=== PATIENT | male | born 1960 | race Caucasian/White ===

== ENCOUNTER 2016-06-12 14:37 | Emergency (ER) | payer SELFPAY ==
[2016-06-12 14:50] VITALS: TEMP 96.8
--- NOTE | 2016-06-12 15:16 | CT ---
Clinical History : Thrown out of backhoe and hit head on barrel. , MAIN Exam : CT Head without contrast 06/12/2016 2:40 PM NEGATIVE ASSEMBLER Comparisons : none. Technique : Volumetric CT acquisition was performed through the brain. Images in the axial, coronal, and sagittal planes were presented for interpretation. Radiation dose : [id number]-870.72 Findings: There is a right frontal scalp soft tissue laceration. The rest of the soft tissue structures of the face and scalp are normal. The globes remain intact. The visualized portions of the paranasal sinuses and mastoid air-cells are clear. The calvarium remains intact . There is no acute intracranial hemorrhage, midline shift, or mass effect. The ventricles are normal in size and the posterior fossa structures are normal in appearance. Limited evaluation of the vasculature demonstrates no gross abnormalities. There is no CT evidence of acute infarction. Impression: 1. No acute intracranial traumatic injury. 2. Right frontal scalp laceration. Electronically signed by: Dimas Beltran MD 06/12/2016 3:15 PM NEGATIVE ASSEMBLER
[2016-06-12] MEDS ORDERED: LIDOCAINE 1% W/ EPINEPHRINE 20 ML VIAL INJ ONE (15:21)
[2016-06-12] MEDS ORDERED: CHLORHEXIDINE GLUCONATE 4 % 15 ML UD TOP ONE (15:32)
[2016-06-12] MEDS ORDERED: NEOMYCIN-BACITRACIN-POLYMYXIN 0.9 GM UD TOP ONE (16:38)
--- NOTE | 2016-06-12 16:54 | ED.PDOC ---
History of Present Illness - General Chief Complaint: Laceration Stated Complaint: laceration Time Seen by Provider: 06/12/16 14:39 Source: patient, RN notes reviewed, Vital Signs reviewed, family Exam Limitations: no limitations - History of Present Illness Initial Comments: Patient is a 56 y/o male who was getting a back hoe off a truck when it slipped. He fell over the back hoe and hit his head on the iron bucket. He now has a laceration to the right frontal scalp. No LOC. He is, however, on Plavix and ASA. Timing/Duration: 1 hour Severity: moderate Improving Factors: nothing Worsening Factors: nothing Associated Symptoms: denies symptoms Allergies/Adverse Reactions: Allergies Penicillins Allergy (Verified 06/12/16 14:51) Home Medications: Ambulatory Orders Aspirin 81 mg PO DAILY 06/12/16 Atorvastatin Calcium 06/12/16 Metformin HCl 06/12/16 Plavix 06/12/16 Ramipril 06/12/16 Review of Systems - Review of Systems Constitutional: States: no symptoms reported EENTM: States: no symptoms reported Respiratory: States: no symptoms reported Cardiology: States: no symptoms reported Gastrointestinal/Abdominal: States: no symptoms reported Genitourinary: States: no symptoms reported Musculoskeletal: States: no symptoms reported Skin: States: lesions Neurological: States: no symptoms reported Endocrine: States: no symptoms reported Hematologic/Lymphatic: States: no symptoms reported All other Systems: Reviewed and Negative Past Medical History (General) - Patient Medical History Hx Cardiac Disorders: Yes - [place] Hx Hypertension: Yes Hx Diabetes: Yes Surgical History: tonsillectomy - Vaccination History Hx Tetanus, Diphtheria Vaccination: Yes - 2 years ago Hx Influenza Vaccination: No - Social History Hx Tobacco Use: No - occasional cigar use Family Medical History - Family History Father Family History: Unknown Living Status: Unknown Physical Exam - Physical Exam General Appearance: Alert, No apparent distress Eye Exam: bilateral normal Ears, Nose, Throat: hearing grossly normal, normal ENT inspection Neck: non-tender, full range of motion Respiratory: lungs clear, normal breath sounds, no respiratory distress Cardiovascular/Chest: regular rate, rhythm, no edema, no gallop Gastrointestinal/Abdominal: non tender, soft Back Exam: normal inspection, no vertebral tenderness Extremity: normal range of motion, non-tender, normal inspection Neurologic: alert, normal mood/affect, oriented x 3 Skin Exam: other - 10 cm laceration to skull right frontal/parietal scalp. Bleeding, but not severe. Progress - Results/Orders Results/Orders: 06/12/16 14:45 Temperature 96.8 F L Pulse Rate [ 103 H Right Brachial] Respiratory 20 Rate Blood Pressure 145/96 [Right Arm] O2 Sat by Pulse 95 Oximetry - EKG/XRAY/CT CT: Head: No acute process CT Ordered: Yes Procedures - Laceration/Wound Repair Right Anterior Parietal Wound Length (cm): 10 Wound's Depth, Shape: into muscle, linear Wound Explored: no foreign body removed Irrigated w/ Saline (cc's): 80 Betadine Prep?: No - Hebaclens Anesthesia: Lidocaine w/ Epi Volume Anesthetic (cc's): 8 Wound Repaired With: sutures Suture Size/Type: 3:0, prolene Number of Sutures: 10 Layer Closure?: No Sterile Dressing Applied?: No Splint Applied?: No Sling Applied?: No Departure - Departure Clinical Impression: Laceration of scalp Qualifiers: Encounter type: initial encounter Qualifier Code: (S01.01XA) Laceration without foreign body of scalp, initial encounter Closed head injury Qualifiers: Encounter type: initial encounter Qualifier Code: (S09.90XA) Unspecified injury of head, initial encounter Time of Disposition: 17:00 Disposition: Discharge to Home or Self Care Condition: Fair Departure Forms: ED Discharge - Pt. Copy, Patient Portal Self Enrollment Instructions: DI for Laceration Repair of the Scalp, DI for Closed Head Injury , Closed Head Injury Diet: resume usual diet Home Medications: Ambulatory Orders Aspirin 81 mg PO DAILY 06/12/16 Atorvastatin Calcium 06/12/16 Metformin HCl 06/12/16 Plavix 06/12/16 Ramipril 06/12/16 Additional Instructions: Closed head injury precautions. Follow up in 7-10 days for suture removal.
[2016-06-12 17:08] VITALS: BP 152/90; O2SAT 94
--- NOTE | 2016-06-14 01:00 | CT ---
Clinical History : Thrown out of backhoe and hit head on barrel. , MAIN Exam : CT Head without contrast 06/12/2016 2:40 PM CONTACT LENS MANUFACTURER Comparisons : none. Technique : Volumetric CT acquisition was performed through the brain. Images in the axial, coronal, and sagittal planes were presented for interpretation. Radiation dose : [id number] Findings: There is a right frontal scalp soft tissue laceration. The rest of the soft tissue structures of the face and scalp are normal. The globes remain intact. The visualized portions of the paranasal sinuses and mastoid air-cells are clear. The calvarium remains intact . There is no acute intracranial hemorrhage, midline shift, or mass effect. The ventricles are normal in size and the posterior fossa structures are normal in appearance. Limited evaluation of the vasculature demonstrates no gross abnormalities. There is no CT evidence of acute infarction. Impression: 1. No acute intracranial traumatic injury. 2. Right frontal scalp laceration. Electronically signed by: Dimas Beltran MD 06/12/2016 3:15 PM CONTACT LENS MANUFACTURER
== END 2016-06-12 17:08 | disposition home or self-care (01) ==
LOC: ER 14:37
DX: S01.01XA Laceration without foreign body of scalp, initial encounter (principal); I25.2 Old myocardial infarction; I10 Essential (primary) hypertension; E11.9 Type 2 diabetes mellitus without complications; Z79.82 Long term (current) use of aspirin; Z79.02 Long term (current) use of antithrombotics/antiplatelets; W22.8XXA Striking against or struck by other objects, initial encounter